=== PATIENT | female | born 1985 | race Caucasian/White ===

== ENCOUNTER 2020-09-29 15:34 | Emergency (ER) | payer MEDICAID ==
[~2020-09-29] VITALS: Ht 160 cm; Wt 115.7 kg
[2020-09-29 15:35] VITALS: BP_SYST 149
[2020-09-29 16:18] LABS: BASOPHILS # (AUTO) 0.1 K/uL (0.0-0.2); BASOPHILS % (AUTO) 0.4 % (0.0-2.0); EOSINOPHILS % (AUTO) 0.3 % (0.0-4.0); HEMATOCRIT 38.5 % (36-48); HEMOGLOBIN 12.8 g/dL (12.0-16.0); LYMPHOCYTES # (AUTO) 1.2 K/uL (1.0-5.5); LYMPHOCYTES % (AUTO) 8.7 % (20.5-51.5); MEAN CORPUSCULAR HEMOGLOBIN 28 pg (27-31); MEAN CORPUSCULAR HGB CONC 33 % (32-36); MEAN CORPUSCULAR VOLUME 85 fL (79.0-98.0); MONOCYTES # (AUTO) 0.4 K/uL (0.0-1.0); MONOCYTES % (AUTO) 3.3 % (1.7-9.3); NEUTROPHILS % (AUTO) 87.3 % (40.0-70.0); PLATELET COUNT (AUTO) 265 K/uL (130-430); RED BLOOD CELL COUNT(AUTO) 4.53 MIL/uL (4.2-6.2); RED CELL DISTRIBUTION WIDTH 13.7 % (9.0-15.0); WHITE BLOOD COUNT (AUTO) 13.7 K/uL (4.8-10.8)
[2020-09-29 16:43] LABS: HCG,QUAL RESULT NEGATIVE (NEGATIVE)
[2020-09-29 16:48] LABS: CALCIUM 8.7 mg/dL (8.4-11.0); CREATININE 0.98 mg/dL (0.55-1.30); POTASSIUM 3.9 mmol/L (3.5-5.1)
[2020-09-29 16:53] LABS: ALBUMIN 3.3 g/dL (3.4-4.8); TOTAL BILIRUBIN 0.4 mg/dL (0.0-1.0)
[2020-09-29 17:11] LABS: PROTHROMBIN TIME 10.7 SECS (9.5-12.5)
[2020-09-29 17:18] LABS: BILIRUBIN,URINE NEGATIVE (NEGATIVE); BLOOD, URINE 3+ (NEGATIVE); CLARITY/URINE CLOUDY (CLEAR); COLOR,URINE YELLOW (YELLOW); GLUCOSE,URINE NEGATIVE (NEGATIVE); KETONES,URINE NEGATIVE (NEGATIVE); LEUKOCYTE ESTERASE ,URINE 3+ (NEGATIVE); NITRITE, URINE POSITIVE (NEGATIVE); PH,URINE 7.5 (5.0-8.0); PROTEIN URINE 2+ (NEGATIVE)
[2020-09-29 17:21] LABS: BACTERIA,URINE MANY /HPF (None Seen); MUCUS,URINE None Seen /LPF (None Seen); RBC,URINE 80-100 /HPF (0-3); URINE AMORPHOUS PHOSPHATES 2+ /HPF (None Seen); WBC,URINE >100 /HPF (0-3)
[2020-09-29] MEDS ORDERED: NITR-85 PO (17:51)
[2020-09-29] MEDS ORDERED: IBUP-1969 PO (17:51)
[2020-09-29] MEDS ORDERED: cefTRIAXone 1 GM in LIDOCAINE 1%, 20 ML MDV 2.1 ML IM ONE (18:00)
[2020-09-29 18:07] VITALS: BP_SYST 137
== END 2020-09-29 18:06 | disposition home or self-care (01) ==
LOC: SED 15:34
DX: N12 Tubulo-interstitial nephritis, not specified as acute or chronic (principal)
CPT/HCPCS: 36415; 76376; 80053; 81000-TC; 81025; 82150-TC; 83605; 83690-TC; 84703; 85025; 85610-TC; 85730-TC; 86140; 87086; 99284

== ENCOUNTER 2021-03-26 14:30 | Emergency (ER) | payer MEDICAID ==
[~2021-03-26] VITALS: Ht 188 cm; Wt 81.6 kg
[~2021-03-26 14:30] MED LIST: IBUP-1969 PO; NITR-85 PO
[2021-03-26 15:42] VITALS: BP_SYST 137
--- NOTE | 2021-03-26 15:42 | NUR ---
Patient triaged and placed in waiting room. VSS and patient appears in no acute distress at this time. Accompanied by partner, awaiting available bed, and MD notified of need for MSE.
--- NOTE | 2021-03-26 15:45 | NUR ---
Pt brought by self, A&Ox4, pt presents to ER with cough/ congestion, pt had Hx of asthma , skin pink and warm,cap refill <3
[2021-03-26] MEDS ORDERED: PRED20TA PO (15:50)
[2021-03-26] MEDS ORDERED: ALBMDI INH (15:50)
--- NOTE | 2021-03-26 16:30 | NUR ---
Dr Zapata evaluating patient at bedside
[2021-03-26 17:01] VITALS: BP_SYST 137
--- NOTE | 2021-03-26 17:03 | NUR ---
Patient given written and verbal discharge instructions and verbalizes understanding. ER MD discussed with patient the results and treatment provided. Patient in stable condition. ID arm band removed. Rx of Albuterol and prednisone 40 mg given. Patient educated on pain management and to follow up with PMD. Pain Scale 0/10. Opportunity for questions provided and answered. Medication side effect fact sheet provided.
== END 2021-03-26 17:01 | disposition home or self-care (01) ==
LOC: SED 14:30
DX: J45.901 Unspecified asthma with (acute) exacerbation (principal); B34.9 Viral infection, unspecified; Z20.822 Contact with and (suspected) exposure to COVID-19; Z79.899 Other long term (current) drug therapy
CPT/HCPCS: 99283

== ENCOUNTER 2023-10-23 22:09 | Emergency (ER) | payer MEDICAID ==
[~2023-10-23] VITALS: Ht 160 cm; Wt 117.9 kg
[~2023-10-23 22:09] MED LIST changes: +ALBMDI INH; +PRED20TA PO
[2023-10-23 22:20] VITALS: BP_SYST 163; PULSE 61; RESP 16; TEMP 97.5; O2SAT 100
[2023-10-23 23:14] LABS: BILIRUBIN,URINE NEGATIVE (NEGATIVE); CLARITY/URINE CLEAR (CLEAR); COLOR,URINE YELLOW (YELLOW); GLUCOSE,URINE NEGATIVE (NEGATIVE); KETONES,URINE NEGATIVE (NEGATIVE); LEUKOCYTE ESTERASE ,URINE NEGATIVE (NEGATIVE); NITRITE, URINE NEGATIVE (NEGATIVE); PROTEIN URINE NEGATIVE (NEGATIVE); UROBILINOGEN,URINE 0.2 (0.2-1.0)
[2023-10-23 23:20] LABS: BLOOD, URINE TRACE (NEGATIVE)
[2023-10-23 23:46] LABS: BACTERIA,URINE None Seen /HPF (None Seen)
[2023-10-24] MEDS ORDERED: IBUP-1971 PO (00:35)
[2023-10-24] MEDS: KETOROLAC TROMETHAMINE 60 MG/2 ML VIAL IM ONE (00:44)
[2023-10-24 00:55] VITALS: BP_SYST 149; PULSE 61; RESP 20; TEMP 98.8; O2SAT 98
== END 2023-10-24 00:56 | disposition home or self-care (01) ==
LOC: SED 22:09
DX: M54.50 Low back pain, unspecified (principal); R11.0 Nausea; Z79.899 Other long term (current) drug therapy
CPT/HCPCS: 99283; 81001; 81000; 96372; 81015; J1885